=== PATIENT | female | born 1945 | race Caucasian/White ===

== ENCOUNTER 2016-12-01 05:53 | Observation (INO) | payer MEDICARE, OTHER ==
[~2016-12-01] VITALS: Ht 162.6 cm; Wt 129.3 kg
--- NOTE | ~2016-12-01 | CON ---
PATIENT'S NAME: SONIDO MCLEOD [facility] AGE: 71 Y [address] ROOM: [place] [address] LOCATION: [facility] ADMIT DATE: 12/01/2016 Consultation DISCHARGE DATE: FAMILY PHYSICIAN: PHYSICIAN, NO ATTENDING PHYSICIAN: Jeevan Lim DATE OF CONSULTATION: 12/01/2016 CHIEF COMPLAINT: Mechanical fall, left shoulder pain. HISTORY OF PRESENT ILLNESS: This is a pleasant 71-year-old female, who was visiting relatives from out of town in [place]. As she was stepping out of the [facility], she experienced a mechanical fall. She complains of shoulder pain. She did hit her head. Denies loss of consciousness. She denies symptoms prior to the fall. She is transferred here by EMS and evaluated by the ER physician, Dr. Johan Tillman, who consulted me regarding her left proximal humerus injury. X-rays reviewed, show a comminuted surgical neck proximal humerus fracture. There is significant displacement. It is closed. She is neurovascularly intact with no complaints of numbness with soft compartments. She was placed in a coaptation splint and sling. PAST MEDICAL HISTORY: Hypertension, gastroesophageal reflux, depression, and dyslipidemia. She suffers from elevated BMI. ALLERGIES: FLUOROQUINOLONES, ACCUPRIL, AND KEFLEX. PAST SURGICAL HISTORY: Knee surgery and partial mastectomies. SOCIAL HISTORY: The patient is visiting from [place]. She used to smoke many years ago. Drinks socially. She has been seen by Dr. Lim' team, who is admitted here. They are taking care of her chronic kidney disease, hypertension, dyslipidemia, and depression. Other surgeries include spine surgery and resection of lipoma. REVIEW OF SYSTEMS: GENERAL: Positive for weight gain. Chronic fatigue. HEENT: Hearing loss. Chronic dry mouth. LUNGS: Obstructive sleep apnea, which she sleeps, sitting up in a [employer] PATIENT'S NAME: SONIDO MCLEOD [facility] AGE: 71 Y [address] ROOM: [address] [address] LOCATION: [facility] ADMIT DATE: 12/01/2016 Consultation DISCHARGE DATE: FAMILY PHYSICIAN: PHYSICIAN, NO ATTENDING PHYSICIAN: Jeevan Lim for the last several years. She gets chronic short of breath on exertion. CARDIOVASCULAR: She has chronic lower extremity edema. MUSCULOSKELETAL: Chronic for elevated BMI, DJD, and prior knee surgery. GI: Suffers from GERD. PHYSICAL EXAMINATION: GENERAL: The patient is alert and oriented x3. Resting comfortably. VITAL SIGNS: Reviewed. HEENT: Normocephalic. She does have a bruise over the left forehead region. Pupils equal, round, and reactive to light. All extraocular motions intact. NECK: Supple. Trachea midline. She has no tenderness to the thoracic or lumbar spine. EXTREMITIES: She has contusions over the anterior aspect of her knees. No joint effusion. There is a scar from prior right knee surgery. She moves her right upper extremity without pain. No tenderness over chest or abdomen. She is in a coaptation splint. Unable to cooperate with full motor exam. She has normal sensation in the median, radial, and ulnar nerve distribution. Her deltoid was not checked with motor. She admits to normal sensation. DISCUSSION: She understands the risk of axillary nerve stretch with this type of fracture that can paralyze her deltoid. She understands the risk of rotator cuff tear. She understands the risk of nonunion and malunion. We discussed the treatment options with surgery and she would like to return to home in [place] to have orthopedic intervention. We discussed that we expect some swelling and discomfort at the fracture site. We will maintain the sling and the coaptation splint. She should to follow up with Orthopedics when she gets the [place] within the next week. She understands there can be other injuries due to distracting injuries that are bothering her at this time. She will need to have serial exams. Currently, her pain is well controlled on the Percocet 10s. Without any other new complaints of pain. LANG RIVAS, PH/modl /[id number] d: 12/02/16 0046 t: 12/06/16 1818, CONSULTATION REPORT
--- NOTE | ~2016-12-01 | DS ---
PATIENT'S NAME: SONIDO MCLEOD [facility] AGE: 71 Y [address] ROOM: [address], [place] [address] LOCATION: G3N ADMIT DATE: 12/01/2016 Discharge Summary DISCHARGE DATE: 12/02/2016 FAMILY PHYSICIAN: PHYSICIAN, NO ATTENDING PHYSICIAN: Jeevan Lim FINAL DIAGNOSES: 1. Acute comminuted fracture of the proximal left humerus. 2. Essential hypertension. 3. Dyslipidemia. 4. Gastroesophageal reflux disease. 5. Mechanical fall. 6. Hypokalemia. 7. Stage 3 chronic kidney disease. HISTORY OF PRESENT ILLNESS: In short, the patient was admitted after she fell on an uneven cement and landed on her arm. She was seen and evaluated in our emergency room, found to have a left humerus fracture. She was seen by Orthopedic Surgery and admitted to [address] [place] [address] by the Hospitalist Service. LABORATORY DATA: In the emergency room, sodium 141, potassium 3.2, chloride 105, CO2 27, BUN 19, and creatinine 1.1. Liver enzymes were normal. GFR was 49. Hemoglobin was 12.5 on admit, hematocrit 37.1, white blood cell count 9.2, and platelet count 189. X-RAY DATA: CT scan of her head did not show any acute cranial injuries. No skull fracture. There was a large scalp hematoma. Cervical spine CT did not show any evidence of fracture, they did not see the fracture in the left humerus. X-ray of the left humerus showed a comminuted fracture of the proximal left humerus, the fracture extended through the surgical neck and greater tuberosity. HOSPITAL COURSE: The patient was seen and admitted to [address] [place] [address] by the hospitalist. She was given oral pain medications for pain control and given medications as needed for nausea. She was seen and evaluated by Dr. Denis Mcknight from Orthopedic Surgery. He did feel that this was a fracture that would require surgical intervention. The patient did state that she would like to have this performed at home in [place] and it was felt that this was a reasonable approach. She was monitored overnight to make sure that her pain was controlled and that she was tolerating the oral pain medications, also wanted to make sure that she was eating and drinking without difficulty. On the morning of the 2nd, the patient had met those goals as well as being able to get herself to and from the bathroom, it was felt that she was stable for discharge. PATIENT'S NAME: SONIDO MCLEOD [facility] AGE: 71 Y [address] ROOM: [address] [address] LOCATION: G3N ADMIT DATE: 12/01/2016 Discharge Summary DISCHARGE DATE: 12/02/2016 FAMILY PHYSICIAN: PHYSICIAN, NO ATTENDING PHYSICIAN: Jeevan Lim DISCHARGE INSTRUCTIONS: To see her primary care provider as soon as possible on return to [place] for referral to Orthopedic Surgery. DISCHARGE MEDICATIONS: 1. Ascorbic acid 500 mg a day. 2. Aspirin 325 mg a day. 3. Vitamin D 2000 units daily. 4. Aromasin 25 mg daily. 5. Klonopin 0.5 mg at bedtime. 6. Hydrochlorothiazide 25 mg daily. 7. Cozaar 100 mg daily. 8. Colace 100 mg twice daily. 9. Multivitamin daily. 10. Prilosec 20 mg daily. 11. Percocet 10/325 one pill every 4 hours as needed for pain, a script for 50 was written. 12. Pravachol 40 mg daily. 13. Zoloft 100 mg daily. 14. MiraLAX 17 g, she could use up to 3 capfuls daily and keep her bowels moving. OVERALL PROGNOSIS: At discharge was good. ERA MARTE MD LAW/viktoria /[id number] d: 12/02/163 t: 12/03/16 1509, DISCHARGE SUMMARY
--- NOTE | ~2016-12-01 | HP ---
PATIENT'S NAME: SONIDO AVILES [facility] AGE: 71 Y [address] ROOM: [id number] [place], [place] [address] LOCATION: [facility] ADMIT DATE: 12/01/2016 History & Physical DISCHARGE DATE: FAMILY PHYSICIAN: PHYSICIAN, NO ATTENDING PHYSICIAN: Jeevan Lim DATE OF SERVICE: 12/01/2016 CHIEF COMPLAINT: Fall with a hematoma on the left scalp with left arm pain. HISTORY OF PRESENT ILLNESS: Ms. Aviles is a 71-year-old, morbidly obese, female from the [place], [place], who is visiting [place] area [place] 50 miles from here. She arrived yesterday and spent the night in the trailer. When stepping out of the trailer, she forgot about an uneven area in the cement, tripped on her way to the bathroom at about 3:00 a.m. today and fell onto the left side of her head and her left shoulder. She is having excruciating pain in the shoulder at the time of admission to the emergency room. Plain film showed proximal humerus fracture. Emergency physician spoke with Dr. Lim and was agreed to admit her for pain control with consultation to Orthopedics for further evaluation of her fracture. When I saw the patient on the 3-Icard unit, she is in 8/10 pain about 2 hours after receiving IV Dilaudid 0.5 mg, followed promptly by Zofran because of acute onset of nausea without vomiting. She states that her head is not hurting very much right now and the swelling from the initial trauma has actually receded some. PAST MEDICAL HISTORY: 1. Chronic kidney disease with EGFR 49 on today's labs, so approximately stage II. 2. Hypertension. 3. Hyperlipidemia. 4. Gastroesophageal reflux disease. 5. Anxiety with depression, chronic. 6. Right breast cancer in 2011, status post 5 years of hormonal therapy. 7. Morbid obesity. 8. Osteopenia. PAST SURGICAL HISTORY: 1. Partial right knee replacement, 2013. 2. Right breast lumpectomy, 2011. PATIENT'S NAME: SONIDO AVILES [facility] AGE: 71 Y [address] ROOM: [address] [place], [place] [address] LOCATION: N ADMIT DATE: 12/01/2016 History & Physical DISCHARGE DATE: FAMILY PHYSICIAN: PHYSICIAN, NO ATTENDING PHYSICIAN: Jeevan Lim 3. Surgical procedure for lateral recess stenosis. 4. Resection of lipoma from inferior to the left breast. ALLERGIES: AVELOX AND ACCUPRIL CAUSES HIVES. AMOXICILLIN AND KEFLEX CAUSE RASH AND PRURITUS. SHE TOOK A DRUG CALLED [facility] WHICH SHE REPORTS IS AN ANTIBIOTIC WHICH CAUSES NAUSEA AND VOMITING. MEDICATIONS: 1. Omeprazole 20 mg p.o. every morning. 2. Sertraline 100 mg daily. 3. Clonazepam 0.5 mg at bedtime. 4. Losartan/hydrochlorothiazide 100/25 one p.o. daily. 5. Aspirin 325 mg daily. 6. Pravastatin 40 mg daily. 7. Multiple vitamin once a day. 8. Vitamin C 500 mg daily. 9. Vitamin D3 of 2000 units 2 tablets daily. SOCIAL HISTORY: She is . She lives with her in [place]. She has a daughter and a son. They both live in [place] as well. She is a retired [employer] tech. She is a former smoker. She quit 30 years ago and smoked for about 20 some years. She has no substantial alcohol intake or other drug use. FAMILY HISTORY: Her mother at a relatively young age. She thinks she was in her 30s of valvular heart disease when the patient was 4 years old. Her father of malignant melanoma. She has a sister and 2 brothers who are healthy. She ambulates without assistance. REVIEW OF SYSTEMS: GENERAL: She may have a small increase in her weight. Her appetite has been fine. She has mild generalized fatigue without any recent increase. She denies fevers, chills, or sweats. HEENT: She reports decreased hearing loss, left greater than right. She denies chronic headaches. No current blurred vision or dizziness. She wears glasses. She denies cataracts, glaucoma, macular degeneration, sinus disease, epistaxis, dysphagia, and odynophagia. She does get a dry mouth and currently has a sore throat. Because of her dry mouth, she has been n.p.o. right now. She snores and her mouth gets dry from this as well. PULMONARY: She has been evaluated for sleep apnea which may be mild, but not enough to be treated. She does sleep sitting up in a lazy boy for the last 3 years. She reports mild dyspnea on exertion, but no significant orthopnea, cough, sputum production, or wheezing. No other chest pain. PATIENT'S NAME: SONIDO AVILES [facility] AGE: 71 Y [address] ROOM: [address] [place], [place] [address] LOCATION: [facility] ADMIT DATE: 12/01/2016 History & Physical DISCHARGE DATE: FAMILY PHYSICIAN: PHYSICIAN, NO ATTENDING PHYSICIAN: Jeevan Lim CARDIOVASCULAR: She denies any history of RI, other coronary artery disease, or valvular disease. She does tend to have some mild lower extremity edema. GASTROENTEROLOGY: She has history of GERD for which she takes PPI daily. She did get acute nausea after the Dilaudid other GI review of systems including vomiting, diarrhea, bloating, cramping, hematemesis, and melena is negative; however, she sounds as though she might be mildly constipated at baseline. The last stool bowel movement was a few days ago. She has had negative colonoscopy x3. GENITOURINARY: Negative for frequent UTIs, incontinence, polyuria, or hematuria, etc. NEUROLOGIC: Negative for memory loss, former strokes, weakness, numbness, confusion, dysarthria, syncope, or loss of balance. HEMATOLOGIC: Negative for history of DVT, PE, or abnormal bleeding. MUSCULOSKELETAL: Osteoarthritis especially of the right knee. She is not known to have osteoporosis, but her bones appear osteopenic on x-rays. ENDOCRINE: She is morbidly obese, but denies history of diabetes or thyroid illness. DERMATOLOGIC: Negative for skin cancers or rashes, etc,. PSYCHIATRIC: She reports her depression and anxiety are well controlled on current medication. She has had no schizophrenia or insomnia or other psychiatric illness. PHYSICAL EXAMINATION: GENERAL: A well-developed, well-nourished, female, in no acute distress. She is sitting up in the hospital bed with left arm in a sling. HEENT: Normocephalic with edema & ecchymosis over left temporo-parietal scalp . Her pupils are equal, round, and reactive to light. Her sclerae are anicteric. Palpebral conjunctivae are pink without exudate. Oropharynx is clear, somewhat dry. There is a hemangioma that is like an irregular hemangioma type lesion on the right side of the soft palate. The patient was unaware if it was there before. She has a partial plate upper natural teeth in fairly good condition lower jaw. NECK: Supple with redundant adipose. There is no supraclavicular adenopathy appreciated. LUNGS: Clear to auscultation with limited exam because of her decreased mobility with left arm in a sling. CARDIOVASCULAR: Regular rate and rhythm without murmur, rub, or gallop. Normal S1 and S2. ABDOMEN: Obese, full with normoactive to sluggish bowel sounds. I do not appreciate any mass. EXTREMITIES: Trace to 1+ pretibial edema. Dorsalis pedis pulses 2+ and equal. She has 5/5 strength with dorsiflexion and plantar flexion with 5/5 grasp on the right. Good grasp with radial pulses 2+ and equal bilaterally. LABORATORY DATA: Hemoglobin is 12.5, white blood cell count 9.2, and platelets 189,000. Sodium PATIENT'S NAME: SONIDO AVILES [facility] AGE: 71 Y [address] ROOM: [place] [address] LOCATION: [facility] ADMIT DATE: 12/01/2016 History & Physical DISCHARGE DATE: FAMILY PHYSICIAN: PHYSICIAN, NO ATTENDING PHYSICIAN: Jeevan Lim 141, potassium 3.2, chloride 105, CO2 of 27, creatinine 11, BUN 19, glucose 148, and EGFR is 49. Liver functions were normal. INR is 1. PT 10.5. PTT 27. RADIOGRAPHIC STUDY: Showed acute comminuted fracture proximal left humerus. The fracture is extending through the surgical neck and greater tuberosity of the proximal humerus. CT of the cervical spine without contrast showed height and alignment of cervical vertebrae retained within the facet dislocation, ring of C1 is intact. No odontoid fracture. No active bone fracture in the cervical vertebrae bodies or posterior elements or sense of degenerative changes in the cervical intervertebral levels with intervertebral space narrowing and osteophyte formation. ASSESSMENT AND PLAN: 1. Acute comminuted fracture of the proximal left humerus. She is admitted for pain control. On discussion with Dr. Mcknight, he does not perform this sort of operation. The patient was given the choice of consulting orthopedist here or proceeding to return home to [place] and find orthopedic referral there. Ms. Aviles and her decided they would like to return to [place] and have the orthopedic intervention there, so that she would be at home when intervention was done. We will attempt oral medications for pain control overnight and admit her to observation status and hopefully, she will be able to be discharged in the morning. We will initiate a bowel regimen. 2. Underlying hypertension which is exacerbated by her pain. We will try to relieve her pain. Monitor blood pressure and give additional medications for this as indicated. 3. She has mild hypokalemia. We will supplement this oral potassium. 4. Depression with anxiety. Continue sertraline with clonazepam. 5. Gastroesophageal reflux disease. Continue oral PPI. 6. Hyperlipidemia. Continue statin. 7. Deep vein thrombosis prophylaxis. We will give her daily Lovenox with sequential compression devices. DISPOSITION: Hope to be able to discharge her within 24 hours. NIDIA MARTIN MD PATIENT'S NAME: SONIDO AVILES [facility] AGE: 71 Y [address] ROOM: [place] [address] LOCATION: [facility] ADMIT DATE: 12/01/2016 History & Physical DISCHARGE DATE: FAMILY PHYSICIAN: PHYSICIAN, NO ATTENDING PHYSICIAN: Jeevan Lim LM/viktoria /[id number] D: [id number] T: 732 HISTORY & PHYSICAL
--- NOTE | ~2016-12-01 | ER ---
PATIENT'S NAME: SONIDO AVILES [facility] AGE: 71 Y [address] ROOM: [place] [address] LOCATION: G3N ADMIT DATE: 12/01/2016 ER/Outpatient Report DISCHARGE DATE: FAMILY PHYSICIAN: PHYSICIAN, NO ATTENDING PHYSICIAN: Jeevan Lim CHIEF COMPLAINT: Fall with head and left shoulder pain. HISTORY OF PRESENT ILLNESS: Approximately 1 hour prior to arrival, Ms. Aviles was camping in a tow [facility] She was getting out of the camper to use the restroom. She stepped on a depression on the ground and fell to her knees and then fell on her left side against a building. She has had exquisite shoulder pain since that time. She did strike her head. She denies loss of consciousness. She denies any other symptoms at this time. She has not taken anything herself. She was given fentanyl by ambulance prior to arrival. She is originally from [place]. PAST MEDICAL HISTORY: Notable for morbid obesity and hypertension as well as GERD, depression, and likely high cholesterol. ALLERGIES: MOXIFLOXACIN, ACCUPRIL, , AND KEFLEX. PAST SURGICAL HISTORY: Left knee surgery and partial mastectomy. SOCIAL HISTORY: From [place], former smoker, quit 30 years ago. Drinks socially, visiting family in the area. REVIEW OF SYSTEMS: All systems were reviewed and negative except as noted in the HPI. PHYSICAL EXAMINATION: VITAL SIGNS: Blood pressure 194/81, pulse 70, respiratory rate 18, temperature 97.9, and SpO2 is 98% on room air. Pain is currently estimated to be 7 to 8 out of 10. GENERAL: An age appropriate female, recumbent on the exam table, in obvious pain, but no respiratory distress. NEUROLOGIC: The patient is awake and alert. GCS is 15. No focal deficits. No asymmetry. She is reluctant to move the left arm. Intrinsic motion of the hand is intact. Fires all muscle groups in the left upper extremity including PATIENT'S NAME: SONIDO AVILES [facility] AGE: 71 Y [address] ROOM: [place] [address] LOCATION: [facility] ADMIT DATE: 12/01/2016 ER/Outpatient Report DISCHARGE DATE: FAMILY PHYSICIAN: PHYSICIAN, NO ATTENDING PHYSICIAN: Jeevan Lim the deltoid. Range of motion not possible. HEENT: Normocephalic. There are some contusions and ecchymosis to the left frontal scalp. Eyes are PERRL. Oropharynx is clear. NECK: Supple. Trachea is midline. No malocclusion. No septal hematomas. Extraocular movements are intact. CHEST: Heart is regular rate and rhythm with no murmurs. LUNGS: Clear to auscultation bilateral with no rhonchi, wheezes, or rales. ABDOMEN: Morbidly obese. Soft, nontender, and nondistended. No rebound or guarding. BACK: Back is normal to inspection and palpation. No CVA tenderness. PELVIS: Stable. EXTREMITIES: Warm and well perfused. The patient endorses some numbness in the left upper extremity, but has no sensory deficits on exam. She is able to activate the deltoid, but any motion of the shoulder joint is too painful for her to attempt. The intrinsic motion of the hand and flexion and extension the elbow are possible. The patient is able to activate all muscle groups. SKIN: Clean, dry, and intact with some contusions to the bilateral knees. LABORATORY DATA AND X-RAYS: Head CT and C-spine CT are unremarkable for intracranial or other osseous abnormalities. Plain films of the left upper shoulder reveal fracture at the surgical neck of the humerus. Labs were obtained. CBC with no appreciable abnormalities. INR is 1. CMS: Potassium is 3.2, glucose 148, GFR is 49, and creatinine 1.1. IMPRESSION: 1. Fall. 2. Left humeral fracture. 3. Contusion to the head. 4. Azotemia. 5. Mild hypokalemia. EMERGENCY DEPARTMENT COURSE: The patient was seen and evaluated. Age and mechanism directed evaluation was undertaken. I do not think this is a cardiac event. Head CT and C-spine CT were unremarkable for acute pathology related to the fall. Plain films revealed a fracture as above. Case was discussed with Dr. Mcknight, orthopedic surgeon on-call. A coaptation splint was applied to the left humerus. Gentle traction was held to try to obtain more anatomic alignment. The patient did tolerate the procedure well. The pain was moderately well controlled with IV Dilaudid. The patient will be admitted to the Hospitalist Service for observation and pain control in the setting of acute fracture and further evaluation from the Orthopedic Team regarding need for possible intervention. All questions were answered. The patient was admitted. PATIENT'S NAME: SONIDO AVILES [facility] AGE: 71 Y [address] ROOM: [address] [address] LOCATION: [facility] ADMIT DATE: 12/01/2016 ER/Outpatient Report DISCHARGE DATE: FAMILY PHYSICIAN: HANY NAVARRO ATTENDING PHYSICIAN: Jeevan Lim SUSAN MD DAHLIA BERMUDEZ/viktoria /[id number] d: 12/01/16 1328 t: 12/18/16 1214, OUTPATIENT REPORT
[2016-12-01 07:00] LABS: BASOPHIL # 0.1 K/uL (0.0-0.2); BASOPHIL % 0.5 %; EOSINOPHIL # 0.1 K/uL (0.0-0.5); EOSINOPHIL % 1.1 %; HEMATOCRIT 37.1 % (33.0-46.0); HEMOGLOBIN 12.5 g/dL (10.0-15.0); IMMATURE GRANULOCYTE % 0.3 %; LYMPHOCYTE % 10.8 %; MCH 31.5 pg (27.0-34.0); MCHC 33.7 gm/dL (32.0-36.5); MCV 93.5 fl (83.0-98.0); MONOCYTE # 0.5 K/uL (0.0-1.0); MONOCYTE % 4.9 %; MPV 9.2 fl (9.4-12.4); NEUTROPHIL # (ANC) 7.5 K/uL (1.8-7.8); NEUTROPHIL % 82.4 %; NRBC % 0 /100WBC (0-0.00); PLATELET COUNT 189 K/uL (150-450); RBC 3.97 M/uL (3.50-5.50); RDW-CV 13.6 % (11.9-14.6); WBC 9.2 K/uL (4.0-11.0)
[2016-12-01 07:11] LABS: PROTIME 10.5 SECONDS (9.8-11.4); PTT 27 SECONDS (25-32)
[2016-12-01 07:21] LABS: ALBUMIN 3.7 gm/dL (3.5-5.0); ANION GAP 12.2 (10.0-19.0); CALCIUM 8.8 mg/dL (8.5-10.5); CREATININE 1.1 mg/dL (0.5-1.1); POTASSIUM 3.2 mMol/L (3.7-5.1); TOTAL BILIRUBIN 0.5 mg/dL (0.0-1.5); TOTAL PROTEIN 7.4 g/dL (6.0-8.4)
--- NOTE | 2016-12-01 14:05 | NUR ---
Patient came up from ER at 0840. Patient states that she had gotten up around 3:30a.m. to go to the bathroom and she was staying in a camper. The bathroom was in the garage so as she stepped out of the camper she stepped in a hole and fell. She scraped her knees a little bit and bumped the left side of her head. She never lost consciousness. Her left humerus is fractured. She has a splint cast in place and a sling. She plans on getting surgery back in [place] where she lives.
[2016-12-01] MEDS ORDERED: ZOLOFT100 M1 PO (14:22)
[2016-12-01] MEDS ORDERED: KLONOPIN0.5 MG PO (14:25)
[2016-12-01] MEDS ORDERED: ASPIRIN325 MG PO (14:30)
[2016-12-01] MEDS ORDERED: PRAVACHOL40 MG PO (14:32)
[2016-12-01] MEDS ORDERED: AROMASIN25 MG PO (14:33)
[2016-12-01] MEDS ORDERED: ASCORBIC ACID500 MG PO (14:34)
[2016-12-01] MEDS ORDERED: THERA-VITE W/ B1 TAB PO (14:34)
[2016-12-01] MEDS ORDERED: VITAMIN D-32000 UNI1 PO (14:36)
[2016-12-01] MEDS ORDERED: COZAAR100 MG PO (14:38)
[2016-12-01] MEDS ORDERED: HYDROCHLOROTHIA25 MG PO (14:41)
[2016-12-01] MEDS ORDERED: PRILOSEC20 MG PO (14:45)
--- NOTE | 2016-12-01 15:14 | NUR ---
Significant Event: Patient admitted at 0845. Her and her are from [facility]. Patient had fallen down in a little hole outside her camper. Her knees are skinned up a little. Has bruise on left side of head. AOx3. Hypertensive on admission. 1515 B/P was 137/73. Splint cast and sling to L) arm. Percocet Q 4hrs. Last dose at 1500. Up with 1 assist to bathroom. Patient plans on having surgery in [facility]. Follow up:
--- NOTE | 2016-12-02 05:07 | NUR ---
Significant Event: Alert and oriented x3. Hypertensive this am with BP 163/61. CSM WNL to LUE. Splint and sling to arm. Ice applied. Up with 1 assist, gait belt and walker. IV SL'd to R) AC. Percocet 10/325 ordered scheduled q 4 hr. Held 2300 dose, pt was sleepy. Pleasant and cooperative with cares. Plans to discharge today. Follow up:
[2016-12-02] MEDS ORDERED: MIRALAX17 GM PO (12:33)
[2016-12-02] MEDS ORDERED: PERCOCET 10-321 EACH PO (12:33)
--- NOTE | 2016-12-02 14:58 | NUR ---
Patient was AOx3. VSS. CSM WNL. L) arm in sling. Dressing C/D/I. Scheduled Percocet given at 1100. Patient had no questions or concerns about discharge instructions. Patient was wheeled to [facility] for dismissal with at 1405.
== END 2016-12-02 14:05 | disposition disaster alternative care site (69) ==
LOC: GACC 05:53 → G3N 07:51
PROVIDERS: Emergency Medicine; ADMIT Family Medicine
DX: S42.252A Displaced fracture of greater tuberosity of left humerus, initial encounter for closed fracture (principal); S42.212A Unspecified displaced fracture of surgical neck of left humerus, initial encounter for closed fracture; I12.9 Hypertensive chronic kidney disease with stage 1 through stage 4 chronic kidney disease, or unspecified chronic kidney disease; N18.3 Chronic kidney disease, stage 3 (moderate); E78.5 Hyperlipidemia, unspecified; F41.8 Other specified anxiety disorders; M85.80 Other specified disorders of bone density and structure, unspecified site; K21.9 Gastro-esophageal reflux disease without esophagitis; E87.6 Hypokalemia; E66.01 Morbid (severe) obesity due to excess calories; Z68.42 Body mass index [BMI] 45.0-49.9, adult; Z85.3 Personal history of malignant neoplasm of breast; Z88.1 Allergy status to other antibiotic agents; Z88.8 Allergy status to other drugs, medicaments and biological substances; Z79.82 Long term (current) use of aspirin; Z79.899 Other long term (current) drug therapy; Z87.891 Personal history of nicotine dependence; Z98.890 Other specified postprocedural states; W01.0XXA Fall on same level from slipping, tripping and stumbling without subsequent striking against object, initial encounter
CPT/HCPCS: A9270; G0378; J1170; J1650; J2405; J2550

== ENCOUNTER → 2016-12-01 | Outpatient (CLI) | payer MEDICARE, OTHER ==
[~2016-12-01] MED LIST: AROMASIN25 MG PO; ASCORBIC ACID500 MG PO; ASPIRIN325 MG PO; COZAAR100 MG PO; HYDROCHLOROTHIA25 MG PO; KLONOPIN0.5 MG PO; MIRALAX17 GM PO; PERCOCET 10-321 EACH PO; PRAVACHOL40 MG PO; PRILOSEC20 MG PO; THERA-VITE W/ B1 TAB PO; VITAMIN D-32000 UNI1 PO; ZOLOFT100 M1 PO
== END | disposition disaster alternative care site (69) ==
LOC: GAMB 05:29
DX: S49.92XA Unspecified injury of left shoulder and upper arm, initial encounter (principal); M25.512 Pain in left shoulder; Z79.899 Other long term (current) drug therapy; Z88.1 Allergy status to other antibiotic agents; Z88.8 Allergy status to other drugs, medicaments and biological substances; W19.XXXA Unspecified fall, initial encounter